=== PATIENT | female | born 1985 | race Caucasian/White ===

== ENCOUNTER 2019-08-25 23:01 | Emergency (ER) | payer OTHER ==
[~2019-08-25] VITALS: Ht 147.3 cm; Wt 81.8 kg
[2019-08-25] MEDS ORDERED: IPRATRPIUM/ALBUTEROL 0.5/2.5MG 3 ML NEBU. NEB ONE (23:15)
--- NOTE | 2019-08-25 23:56 | PHYS DOC ---
Adult General Chief Complaint Chief Complaint: COUGH.. " I ve had a cough.... the last couple days.. I am worried.. I might have the Covid 19.. thing. .. my boy friend works in the long-term.. and I was in [place] on cruise...came back on .. HPI HPI Patient is a 34 year old female who presents with with development of a cough the last 2 days. Patient states cough is nonproductive. Complaining of generalized discomfort, malaise, arthralgia, myalgia and subjective fevers. Patient did not get a flu vaccination this season. Pt. but did have travel to [facility] on a cruise ship proximally 2 months ago. No specific Ill contacts. No hx of immunosuppression. Review of Systems Review of Systems Constitutional: Complaints of fever or chills [] Eyes: Denies change in visual acuity, redness, or eye pain [] HENT: Complaints of congestion or sore throat [] Respiratory: Denies cough or shortness of breath [] Cardiovascular: No additional information not addressed in HPI [] GI: Denies abdominal pain, nausea, vomiting, bloody stools or diarrhea [] : Denies dysuria or hematuria [] Musculoskeletal: Denies back pain or joint pain [] Integument: Denies rash or skin lesions [] Neurologic: Denies headache, focal weakness or sensory changes [] Endocrine: Denies polyuria or polydipsia [] All other systems were reviewed and found to be within normal limits, except as documented in this note. Family History Family History Noncontributory Current Medications Current Medications See nursing for home meds Current Medications Medications (Trade) Dose Ordered Sig/Kenny Start Time Stop Time Status Last Admin Dose Admin Albuterol/ Ipratropium (Duoneb) 3 ml 1X ONCE 08/25/19 23:15 08/25/19 23:16 UNV 08/25/19 23:31 3 ML Allergies Allergies Allergic to sulfa and promethazine Physical Exam Physical Exam Constitutional: , no acute distress, non-toxic appearance. [] HENT: Normocephalic, atraumatic, bilateral external ears normal, oropharynx moist, no oral exudates, nose turbinates and rhinorrhea Eyes: PERRLA, EOMI, conjunctiva normal, no discharge. [] Neck: Normal range of motion, no tenderness, supple, no stridor. [] Cardiovascular:Heart rate regular rhythm, no murmur [] Lungs & Thorax: Bilateral breath sounds equal apexes few scattered wheezes on auscultation [] Abdomen: Bowel sounds normal, soft, no tenderness, no masses, no pulsatile masses. Obese. Skin: Warm, dry, no erythema, no rash. [] Back: No tenderness, no CVA tenderness. [] Extremities: No tenderness, no cyanosis, no clubbing, ROM intact, no edema. [] Neurologic: Alert and oriented X 3, normal motor function, normal sensory function, no focal deficits noted. [] Psychologic: Affect normal, judgement normal, mood normal. [] Current Patient Data Vital Signs Vital Signs Date Time Temp Pulse Resp B/P (MAP) Pulse Ox O2 Delivery O2 Flow Rate FiO2 08/25/19 23:32 97 Room Air EKG EKG [] Radiology/Procedures Radiology/Procedures [] Course & Med Decision Making Course & Med Decision Making Pertinent Labs and Imaging studies reviewed. (See chart for details) Patient uses MDI 2 puffs 4 times a day. Patient take Tylenol ibuprofen for discomfort. Patient to the snf in place. Avoid travel or contact for the next 2 weeks. Use MDI 2 puffs 4 times a day. Follow-up primary care. Return if any concerns. Impression: 1. Viral syndrome [] Dragon Disclaimer Dragon Disclaimer This electronic medical record was generated, in whole or in part, using a voice recognition dictation system. Departure Departure: Disposition: HOME/RESIDENCE PRIOR TO ADM Condition: STABLE Referrals: JESSI COOPER (PCP) Scripts Albuterol Sulfate (VENTOLIN HFA INHALER) 18 Gm Hfa.aer.ad 2 PUFF IH PRN Q4HRS PRN for FOR ASTHMA, #30 INHALER 0 Refills Prov: BENNY EPPERSON MD 08/26/19 Stevie Disclaimer This chart was dictated in whole or in part using Voice Recognition software in a busy, high-work load, and often noisy Emergency Department environment. It may contain unintended and wholly unrecognized errors or omissions. BENNY EPPERSON MD Aug 25, 2019 23:56
[2019-08-26 00:43] LABS: INFLUENZA A PATIENT NEGATIVE (NEGATIVE); INFLUENZA B PATIENT NEGATIVE (NEGATIVE)
[2019-08-26 01:45] VITALS: BP 141/76
[2019-08-26] MEDS ORDERED: ALBU2.5V8 IH (02:00)
== END 2019-08-26 02:13 | disposition home or self-care (01) ==
LOC: ER 23:01
DX: B34.9 Viral infection, unspecified (principal); Z88.2 Allergy status to sulfonamides
CPT/HCPCS: 87070; 87804; 87880; 94640; 99285